=== PATIENT | female | born 1955 | race Caucasian/White ===

== ENCOUNTER → 2018-04-20 12:21 | Outpatient (CLI) | payer OTHER, SELFPAY ==
--- NOTE | 2018-04-20 | DI.MRI.S_ITS ---
PROCEDURE: MR KNEE RT WO CON INDICATIONS: PAIN IN RT KNEE TECHNIQUE: Noncontrast sagittal PD fast spin echo and T2 fast spin echo with fat saturation, sagittal 3-D FLASH with fat saturation; coronal T1 spin echo and PD fast spin echo with fat saturation, and axial PD fast spin echo with fat saturation through the knee. COMPARISON: None. FINDINGS: Image quality: Excellent. Menisci: Lateral meniscus appears intact. There is greater than expected T2 hyperintensity and signal change at the posterior medial meniscocapsular junction, raising possibility of peripheral tear involving the posterior horn of the medial meniscus however this is not well-seen on all pulse sequences therefore clinical correlation recommended Cruciate ligaments: The anterior and posterior cruciate ligaments appear intact. Medial structures: The medial collateral ligament appears intact. There is mild insertional semimembranosus tendinopathy. Trace pes anserinus bursitis. Lateral structures: The lateral collateral ligament, long and short heads of the biceps femoris tendon appear intact. The popliteus tendon appears normal; the popliteofibular ligament appears intact. The posterosuperior and anteroinferior popliteomeniscal fascicles appear intact. The arcuate and fabellofibular ligaments appear intact, on either side of the lateral inferior geniculate artery. Iliotibial band appears normal. Anterior structures: The quadriceps and patellar tendons appear intact, however there is minimal proximal patellar tendinopathy. Patellar alignment is normal. No femoral trochlear dysplasia or ventral trochlear prominence. Mild deep infrapatellar bursal fluid. Bones and cartilage: No bone marrow contusions or fractures. Within the medial compartment, no focal articular cartilage defect is seen. Within the lateral compartment, the articular cartilage appears grossly preserved. Within the patellofemoral compartment, there is diffuse partial thickness loss of the patellar cartilage comment mild surface fraying of the femoral trochlear cartilage. There are areas of subchondral signal change and marrow edema/cystic formation involving the median patellar ridge and lateral patellar facet. Joint space: No pathologic joint effusion. No formed Tello's cyst although trace fluid seen between the semimembranosus and medial gastrocnemius tendons IMPRESSION: Signal change suggestive of peripheral tear involving the medial meniscus posterior horn and/or meniscocapsular separation, although indeterminate by strict MR criteria. Therefore please correlate clinically. Patellofemoral compartment joint degeneration. Associated subchondral edema and cystic change. Mild insertional semimembranosus tendinopathy. Low-grade proximal patellar tendinopathy. Trace pes anserinus bursitis Dictated by: Devin Cobb M.D. on 04/20/2018 at 14:48 Approved by: Devin Cobb M.D. on 04/20/2018 at 14:57
--- NOTE | 2018-04-20 12:28 | DI.RAD.S_ITS ---
PROCEDURE: XR HIP W PEL IF DONE RT 2V INDICATIONS: R hip and knee pain TECHNIQUE: AP pelvis with lateral view(s) of the right hip(s). COMPARISON: None. FINDINGS: Bones: No fractures or dislocations. Pelvic ring appears intact. No suspicious bony lesions. Mild bilateral hip subchondral sclerosis and spurring. Cortical hypertrophy in the region of the greater trochanter bilaterally. Soft tissues: The visualized bowel gas pattern is normal. No suspicious soft tissue calcifications. IMPRESSION: Cortical hypertrophy at the region of the greater trochanter (although bilaterally), raising the possibility of hip abductor insertional tendinopathy. This could be confirmed with pelvis MRI as clinically necessary. Dictated by: Devin Cobb M.D. on 04/20/2018 at 15:38 Approved by: Devin Cobb M.D. on 04/20/2018 at 15:40
== END ==
PROVIDERS: PCP Family Medicine; Visit Provider Orthopaedic Surgery
DX: M25.551 Pain in right hip (principal); M25.561 Pain in right knee; M17.11 Unilateral primary osteoarthritis, right knee; R60.0 Localized edema; M71.561 Other bursitis, not elsewhere classified, right knee
CPT/HCPCS: 73502; 73721

== ENCOUNTER → 2019-02-01 11:29 | Outpatient (CLI) | payer OTHER, SELFPAY ==
--- NOTE | 2019-02-01 11:30 | DI.MG.S_ITS ---
BILATERAL DIGITAL SCREENING MAMMOGRAM 3D/2D WITH CAD: 02/01/2019 CLINICAL: Routine screening. Family history of breast cancer. Comparison is made to exams dated: 06/03/2016 mammogram, 05/29/2015 mammogram, and 05/02/2014 mammogram - [facility]. The tissue of both breasts is heterogeneously dense. This may lower the sensitivity of mammography. Current study was also evaluated with a Computer Aided Detection (CAD) system. No significant masses, calcifications, or other findings are seen in either breast. There has been no significant interval change. IMPRESSION: NEGATIVE There is no mammographic evidence of malignancy. A 1 year screening mammogram is recommended. This exam was interpreted at Station ID: [id number]. NOTE: For mammograms, a report in lay terms will be sent to the patient. Approximately 15% of breast malignancies will not be visualized mammographically. In the management of a palpable breast mass, a negative mammogram must not discourage biopsy of a clinically suspicious lesion. Electronically Signed By: Chery banda/todd:02/01/2019 13:34:19 letter sent: Normal Exam ACR BI-RADS Category 1: Negative 3341F
== END ==
PROVIDERS: PCP Family Medicine; Visit Provider Family Medicine
DX: Z12.31 Encounter for screening mammogram for malignant neoplasm of breast (principal); Z80.3 Family history of malignant neoplasm of breast
CPT/HCPCS: 77063; 77067

== ENCOUNTER → 2019-02-06 12:50 | Outpatient (CLI) | payer OTHER, SELFPAY ==
--- NOTE | 2019-02-06 13:04 | DI.RAD.S_ITS ---
PROCEDURE: XR CHEST 2V INDICATIONS: Chronic cough TECHNIQUE: 2 views of the chest were acquired. COMPARISON: None. FINDINGS: Surgical changes and devices: None. Lungs and pleura: Lungs are clear. No pleural effusions or pneumothorax. Mediastinum: Mediastinal contours are normal. Heart size is normal. Bones and chest wall: No suspicious bony abnormalities. Soft tissues appear unremarkable. IMPRESSION: No cardiopulmonary abnormality identified. Dictated by: Carlito Tatum M.D. on 02/06/2019 at 14:13 Approved by: Carlito Tatum M.D. on 02/06/2019 at 14:13
== END ==
PROVIDERS: PCP Family Medicine; Visit Provider Family Medicine
DX: R05 Cough (principal)
CPT/HCPCS: 71046

== ENCOUNTER → 2019-03-27 10:36 | Outpatient (CLI) | payer OTHER, SELFPAY ==
[2019-03-27 11:38] LABS: Add Manual Diff / Slide Review NO; Basophils Absolute Auto 0 /uL (0-100); Basophils Percent Auto 0.5 % (0-2); Eosinophils Absolute Auto 100 /uL (0-450); Eosinophils Percent Auto 2.3 % (2-4); Hematocrit 40.4 % (36-46); Hemoglobin 14.2 g/dL (12.0-16.0); Lymphocytes Absolute Auto 1900 /uL (1100-4500); Lymphocytes Percent Auto 37.2 % (25-40); Mean Corpuscular HGB Conc 35.2 % (30-36); Mean Corpuscular Hemoglobin 29.9 PG (26-34); Monocytes Absolute Auto 500 /uL (0-900); Monocytes Percent Auto 9.1 % (3-14); Neutrophils Absolute Auto 2600 /uL (1500-7000); Neutrophils Percent Auto 50.9 % (50-75); Platelet Count 250 X10^3/uL (150-400); Red Blood Cell Count 4.76 X10^6/uL (4.0-5.2); Red Cell Distribution Width 12.3 % (11.6-14.8); White Blood Cell Count 5.1 X10^3/uL (4.5-11.0)
[2019-03-27 11:48] LABS: Appearance Urine UA CLEAR; Bilirubin Urine UA NEGATIVE (NEGATIVE); Color Urine UA YELLOW; Glucose Urine UA NEGATIVE (Negative); Ketones Urine UA NEGATIVE (NEGATIVE); Leukocyte Esterase Urine UA NEGATIVE (NEGATIVE); Nitrite Urine UA NEGATIVE (Negative); Occult Blood Urine UA NEGATIVE (Negative); Protein Urine UA NEGATIVE (Negative); Urobilinogen Urine UA 0.2 E.U./dL (0.2)
[2019-03-27 12:04] LABS: Bilirubin Total 0.7 mg/dL (0.2-1.3); Blood Urea Nitrogen 10 mg/dL (7-17); Calcium 10.4 mg/dL (8.4-10.2); Carbon Dioxide 27 mmol/L (22-32); Chloride 103 mmol/L (98-107); Estimated Glomerular Filt Rate > 60.0 mL/min (>60); Glucose 102 mg/dL (80-110); Potassium 4.3 mmol/L (3.4-5.1); Sodium 137 mmol/L (137-145)
[2019-03-27 12:05] LABS: Alanine Aminotransferase 34 IU/L (<35); Albumin Globulin Ratio 1.6 (1.0-2.8); Alkaline Phosphatase 75 U/L (38-126); Aspartate Aminotransferase 29 IU/L (14-36); Cholesterol 196 mg/dL (140-199); Globulin 2.5 g/dL (1.7-4.1); HDL Cholesterol 40 mg/dL (40-60); HEMOLYSIS < 15 (0-50); LDL Cholesterol Calculated 120 mg/dL (<100); Total Protein 6.5 g/dL (6.3-8.2); Triglycerides 182 mg/dL (35-150)
[2019-03-27 12:37] LABS: Thyroid Stimulating Hormone < 0.02 uIU/mL (0.47-4.68)
== END ==
PROVIDERS: PCP Family Medicine; Visit Provider Family Medicine
DX: Z00.00 Encounter for general adult medical examination without abnormal findings (principal)
CPT/HCPCS: 36415; 80053; 80061; 81003; 84443; 85025

== ENCOUNTER → 2019-09-20 12:05 | Outpatient (CLI) | payer MEDICARE, OTHER, SELFPAY ==
[2019-09-20 14:16] LABS: Cholesterol 246 mg/dL (140-199); HDL Cholesterol 58 mg/dL (40-60); LDL Cholesterol Calculated 155 mg/dL (<100); Triglycerides 163 mg/dL (35-150)
== END ==
PROVIDERS: PCP Nurse Practitioner; Referring Provider Nurse Practitioner; Visit Provider Nurse Practitioner
DX: E78.1 Pure hyperglyceridemia (principal); E78.5 Hyperlipidemia, unspecified
CPT/HCPCS: 36415; 80061

== ENCOUNTER → 2019-09-21 09:56 | Outpatient (CLI) | payer MEDICARE, OTHER, SELFPAY ==
[2019-09-21 11:55] LABS: Hepatitis B Surface Antigen NEGATIVE s/c (NEGATIVE)
[2019-09-21 12:11] LABS: HIV 1 & 2 Ab/Ag 4th Gen Combo NEGATIVE (NEGATIVE); Hep C Virus Ab w/Reflex Quant NEGATIVE s/c (NEGATIVE)
[2019-09-21 13:19] LABS: Urine N gonorrhoeae NOT DETECTED
[2019-09-21 13:26] LABS: Urine Chlamydia NOT DETECTED
[2019-09-22 04:38] LABS: RPR Screen Non Reactive (Non Reactive)
== END ==
PROVIDERS: PCP Nurse Practitioner; Referring Provider Nurse Practitioner; Visit Provider Nurse Practitioner
DX: Z00.00 Encounter for general adult medical examination without abnormal findings (principal); Z11.59 Encounter for screening for other viral diseases; Z91.89 Other specified personal risk factors, not elsewhere classified
CPT/HCPCS: 36415; 86592; 86803; 87340; 87389; 87491; 87591

== ENCOUNTER → 2019-10-09 14:27 | Outpatient (CLI) | payer MEDICARE, OTHER, SELFPAY ==
--- NOTE | 2019-10-09 14:30 | DI.US.S_ITS ---
PROCEDURE: US ABD AORTA ANEURYSM SCREEN INDICATIONS: HX SMOKING TECHNIQUE: Real time scanning was performed of the aorta and iliac arteries, with image documentation. COMPARISON: None. FINDINGS: Aorta: Proximal aortic diameter measures 1.6 cm. Mid-aorta measures 1.2 cm. Distal aortic diameter is 1.2 cm. Iliac arteries: Right common iliac artery measures 0.8 cm. Left common iliac artery measures 0.8 cm. IMPRESSION: No abdominal aortic or proximal common iliac artery aneurysm. Dictated by: Franck Schofield [facility] Interpreted: Celio Wiggins MD on 10/09/2019 at 15:51 Approved by: Celio Wiggins M.D. on 10/09/2019 at 16:23
== END ==
PROVIDERS: PCP Nurse Practitioner; Referring Provider Nurse Practitioner; Visit Provider Nurse Practitioner
DX: Z13.6 Encounter for screening for cardiovascular disorders (principal); M85.851 Other specified disorders of bone density and structure, right thigh; Z78.0 Asymptomatic menopausal state; E05.00 Thyrotoxicosis with diffuse goiter without thyrotoxic crisis or storm; Z87.891 Personal history of nicotine dependence
CPT/HCPCS: 76706; 77080

== ENCOUNTER → 2020-04-12 13:08 | Outpatient (CLI) | payer MEDICARE, OTHER, SELFPAY ==
--- NOTE | 2020-04-12 13:10 | DI.MG.S_ITS ---
BILATERAL DIGITAL SCREENING MAMMOGRAM 3D/2D WITH CAD: 04/12/2020 CLINICAL: Routine screening. Family history of breast cancer. Comparison is made to exams dated: 02/01/2019 mammogram - [facility] and 06/03/2016 mammogram - [facility]. The tissue of both breasts is heterogeneously dense. This may lower the sensitivity of mammography. Current study was also evaluated with a Computer Aided Detection (CAD) system. No significant masses, calcifications, or other findings are seen in either breast. There has been no significant interval change. IMPRESSION: NEGATIVE There is no mammographic evidence of malignancy. A 1 year screening mammogram is recommended. This exam was interpreted at Station ID: [id number]. NOTE: For mammograms, a report in lay terms will be sent to the patient. Approximately 15% of breast malignancies will not be visualized mammographically. In the management of a palpable breast mass, a negative mammogram must not discourage biopsy of a clinically suspicious lesion. Electronically Signed By: Crescencio [email or web address]/todd:04/14/2020 13:59:48 letter sent: Normal Exam ACR BI-RADS Category 1: Negative 3341F
== END ==
PROVIDERS: PCP Nurse Practitioner; Referring Provider Nurse Practitioner; Visit Provider Nurse Practitioner
DX: Z12.31 Encounter for screening mammogram for malignant neoplasm of breast (principal); Z80.3 Family history of malignant neoplasm of breast
CPT/HCPCS: 77063; 77067

== ENCOUNTER → 2020-07-18 11:07 | Outpatient (CLI) | payer MEDICARE, OTHER, SELFPAY ==
[2020-07-18] MEDS: COVID-19 VACC #1, MRNA(MOD) 100 MCG/0.5 ML VIAL IM (11:16)
== END ==
PROVIDERS: PCP Nurse Practitioner; Visit Provider Internal Medicine
DX: Z23 Encounter for immunization (principal)
CPT/HCPCS: 0011A; 91301

== ENCOUNTER → 2020-08-15 12:20 | Outpatient (CLI) | payer MEDICARE, OTHER, SELFPAY ==
[2020-08-15] MEDS: COVID-19 VACC #2, MRNA(MOD) 100 MCG/0.5 ML VIAL IM (12:32)
== END ==
PROVIDERS: PCP Nurse Practitioner; Visit Provider Internal Medicine
DX: Z23 Encounter for immunization (principal)
CPT/HCPCS: 0012A; 91301

== ENCOUNTER → 2021-04-28 12:44 | Outpatient (CLI) | payer MEDICARE, OTHER, SELFPAY ==
--- NOTE | 2021-04-28 12:46 | DI.US.S_ITS ---
LIMITED ULTRASOUND OF LEFT BREAST: 04/28/2021 CLINICAL: Left nipple pain. Comparison is made to exams dated: 04/28/2021 mammogram, 04/28/2021 mammogram, and 04/12/2020 mammogram - [facility]. Color flow and real-time ultrasound of the left breast retroareolar were performed. Malik scale images of the real-time examination were reviewed. No significant abnormalities were seen sonographically in the left retroareolar breast. IMPRESSION: NEGATIVE There is no sonographic evidence of malignancy. A 1 year screening mammogram is recommended. Exam findings were conveyed to the patient. Patient is advised to monitor for significant change. Clinical follow-up as needed. This exam was interpreted at Station ID: [id number]. Electronically Signed By: Carlito Tatum M.D. slc/:04/28/2021 15:03:27 letter sent: Normal Exam Ultrasound BI-RADS: 1 Negative
--- NOTE | 2021-04-28 12:46 | DI.MG.S_ITS ---
BILATERAL DIGITAL DIAGNOSTIC MAMMOGRAM 3D/2D: 04/28/2021 CLINICAL: Left Breast pain at the nipple. Comparison is made to exams dated: 04/12/2020 mammogram, 02/01/2019 mammogram - [facility], 06/03/2016 mammogram, and 05/29/2015 mammogram - [facility] [place]. The tissue of both breasts is heterogeneously dense. This may lower the sensitivity of mammography. No significant masses, calcifications, or other findings are seen in either breast. IMPRESSION: INCOMPLETE: NEEDS ADDITIONAL IMAGING EVALUATION No mammographic evidence of malignancy. A targeted ultrasound is recommended and will immediately follow. This exam was interpreted at Station ID: [id number]. NOTE: For mammograms, a report in lay terms will be sent to the patient. Approximately 15% of breast malignancies will not be visualized mammographically. In the management of a palpable breast mass, a negative mammogram must not discourage biopsy of a clinically suspicious lesion. Electronically Signed By: Carlito Tatum M.D. slc/:04/28/2021 13:39:58 ACR BI-RADS Category 0: Incomplete [id number]
== END ==
PROVIDERS: PCP Nurse Practitioner; Referring Provider Nurse Practitioner; Visit Provider Nurse Practitioner
DX: R92.2 Inconclusive mammogram (principal); N64.4 Mastodynia; Z80.3 Family history of malignant neoplasm of breast
CPT/HCPCS: 76642; 77066; G0279

== ENCOUNTER → 2021-07-09 09:09 | Outpatient (CLI) | payer MEDICARE, OTHER, SELFPAY ==
[2021-07-09 10:50] LABS: Alanine Aminotransferase 26 IU/L (<35); Albumin 4.5 g/dL (3.5-5.0); Albumin Globulin Ratio 1.6 (1.0-2.8); Alkaline Phosphatase 81 U/L (38-126); Aspartate Aminotransferase 30 IU/L (14-36); BUN Creatinine Ratio 17.6 (6-22); Bilirubin Total 0.7 mg/dL (0.2-1.3); Blood Urea Nitrogen 12 mg/dL (7-17); Calcium 9.4 mg/dL (8.4-10.2); Carbon Dioxide 27 mmol/L (22-32); Chloride 103 mmol/L (98-107); Cholesterol 260 mg/dL (140-199); Estimated Glomerular Filt Rate > 60.0 mL/min (>60); Globulin 2.8 g/dL (1.7-4.1); Glucose 106 mg/dL (80-110); HDL Cholesterol 54 mg/dL (40-60); HEMOLYSIS < 15 (0-50); LDL Cholesterol Calculated 177 mg/dL (<100); Potassium 4.3 mmol/L (3.4-5.1); Sodium 138 mmol/L (137-145); Total Protein 7.3 g/dL (6.3-8.2); Triglycerides 145 mg/dL (35-150)
[2021-07-09 11:31] LABS: Thyroid Stimulating Hormone < 0.015 uIU/mL (0.47-4.68)
== END ==
PROVIDERS: PCP Nurse Practitioner; Referring Provider Nurse Practitioner; Visit Provider Nurse Practitioner
DX: E05.00 Thyrotoxicosis with diffuse goiter without thyrotoxic crisis or storm (principal); E78.1 Pure hyperglyceridemia; E78.5 Hyperlipidemia, unspecified; E83.52 Hypercalcemia; F41.8 Other specified anxiety disorders
CPT/HCPCS: 36415; 80053; 80061; 84443